=== PATIENT | male | born 1955 | race Caucasian/White ===

== ENCOUNTER 2018-02-12 08:44 | Emergency (ER) | payer OTHER ==
[2018-02-12] MEDS ORDERED: NA CHLORIDE 0.9% 1,000 ML ONE (09:13)
[2018-02-12 09:42] LABS: Absolute Lymphocytes (CBC) 2.5 K/uL (0.7-4.9); Absolute Monocytes 0.9 K/uL (0.1-1.3); Absolute Neutrophil 5.5 K/uL (1.8-8.0); Basophils % 0.6 % (0-1.3); Hematocrit 48.4 % (39.6-49.0); Lymphocytes % 26.8 % (15.3-44.8); MCH 30.5 pg (27.0-35.0); MCV 87.6 fL (80-100); MPV 9.3 fL (7.6-11.3); Monocytes % 9.3 % (3.3-12.3); RBC Red Blood Cell Count 5.52 M/uL (4.33-5.43)
[2018-02-12 09:45] LABS: Albumin 4.3 g/dL (3.4-5.0); Bilirubin Direct 0.2 mg/dL (0-0.2); Bilirubin Total 0.7 mg/dL (0.2-1.0); Potassium 4.2 mmol/L (3.5-5.1)
[2018-02-12 10:10] LABS: Urine Blood NEGATIVE (NEG); Urine Glucose NEGATIVE (NEG); Urine Protein NEGATIVE (NEG)
--- NOTE | 2018-02-12 10:40 | RAD REPORT ---
EXAM DESCRIPTION: CT - Abdomen Pelvis W Contrast - 02/12/2018 10:03 am CLINICAL HISTORY: Abdominal pain COMPARISON: None. TECHNIQUE: Biphasic, helical CT imaging of the abdomen and pelvis was performed following 100 ml non -ionic IV contrast. Oral contrast was given. All CT scans are performed using dose optimization technique as appropriate and may include automated exposure control or mA/KV adjustment according to patient size. FINDINGS: No suspicious findings in the lung bases. The liver, spleen, and pancreas show no suspicious findings. Liver shows fatty infiltration. Cholecys tectomy clips are present with no biliary tree dilatation. Symmetric renal function is seen with no hydronephrosis or suspicious renal mass. No pyelonephritis o r acute renal parenchymal process. Partially filled urinary bladder shows no suspicious finding. [place] gland and seminal vesicles within range of normal. No gastric dilatation or wall thickening. Small bowel loops are not dilated though there are a few mi d small bowel loops mildly prominent. No appendicitis. No acute colon finding seen. Patient has numer ous small central mesenteric lymph nodes. Peripancreatic and periportal lymph nodes are present more prominent in size. Largest is 2.4 x 1.4 cm. These are still generally benign in appearance. No free air, free fluid or inflammatory stranding. No hernia, mass or bulky lymphadenopathy. The uri nary bladder is without significant finding. No adrenal abnormality. No suspicious bony findings. IMPRESSION: No bowel obstruction, acute appendicitis, free air or surgically emergent finding. Minimally prominent small bowel loops and mesenteric lymph nodes are present and could indicate a non specific enteritis. Mild fatty infiltration of the liver.
--- NOTE | 2018-02-12 10:49 | ER ---
Nurse's Notes [facility] Name: Ponce Benítez Age: 62 yrs Sex: Male : 1955 Arrival Date: 02/12/2018 Time: 08:47 Bed 20 Private MD: None, None Diagnosis: Unspecified abdominal pain Presentation: 02/12 08:48 Presenting complaint: Patient states: Right-sided abd pain that began this morning. Pt aa5 denies N/V/D. Transition of care: patient was not received from another setting of care. Onset of symptoms was January 2018. Risk Assessment: Do you want to hurt yourself or someone else? Patient reports no desire to harm self or others. Initial Sepsis Screen: Does the patient meet any 2 criteria? No. Patient's initial sepsis screen is negative. Does the patient have a suspected source of infection? No. Patient's initial sepsis screen is negative. Care prior to arrival: None. 08:48 Method Of Arrival: Ambulatory aa5 08:48 Acuity: LUIS MANUEL 3 aa5 Triage Assessment: 08:53 General: Appears in no apparent distress. uncomfortable, Behavior is calm, cooperative, bp appropriate for age. Pain: Complains of pain in right upper quadrant and right lower quadrant. EENT: No deficits noted. Neuro: Level of Consciousness is awake, alert, obeys commands, Oriented to person, place, time, situation, Appropriate for age. Cardiovascular: No deficits noted. Respiratory: Airway is patent Respiratory effort is even, unlabored, Respiratory pattern is regular, symmetrical. GI: Abdomen is non-distended. : No signs and/or symptoms were reported regarding the genitourinary system. Derm: No deficits noted. Musculoskeletal: Circulation, motion, and sensation intact. Range of motion: intact in all extremities. Historical: - Allergies: 08:49 No Known Allergies; aa5 - Home Meds: 08:49 None [Active]; aa5 - PMHx: 08:49 Hyperlipidemia; aa5 - PSHx: 08:49 Cholecystectomy; aa5 - Immunization history:: Adult Immunizations unknown. - Social history:: Smoking status: Patient/guardian denies using tobacco. - Ebola Screening: : No symptoms or risks identified at this time. Screenin:55 Abuse screen: Denies threats or abuse. Denies injuries from another. Nutritional bp screening: No deficits noted. Tuberculosis screening: No symptoms or risk factors identified. Fall Risk None identified. Assessment: 08:54 General: SEE TRIAGE NOTE. PT NOW STATING PAIN INTERMITTENT FOR YEARS. bp 09:30 GI: Bowel sounds present X 4 quads. Abd is soft X 4 quads. bp 09:54 Reassessment: PT TO CT WITH MEDICAID SPECIALIST. bp 10:13 Reassessment: PT RETURNED TO ROOM FROM CT. bp 11:06 Reassessment: PT D/C HOME AMBULATORY, DX WITH BILIARY COLIC. bp Vital Signs: 08:49 BP 163 / 91; Pulse 67; Resp 18 S; Temp 97.8(O); Pulse Ox 98% on R/A; Weight 122.47 kg aa5 (R); Height 6 ft. 4 in. (193.04 cm) (R); Pain 0/10; 09:45 BP 139 / 78; Pulse 61; Resp 14; Pulse Ox 94% ; bp 10:13 BP 170 / 85; Pulse 71; Resp 14; Pulse Ox 94% ; bp 10:45 BP 162 / 85; Pulse 61; Resp 16; Pulse Ox 95% ; bp 08:49 Body Mass Index 32.87 (122.47 kg, 193.04 cm) aa5 ED Course: 08:47 Patient arrived in ED. mr 08:47 None, None is Private Physician. mr 08:48 Triage completed. aa5 08:48 Arm band placed on. aa5 08:49 Manolo Fraga, POLA is Primary Nurse. bp 08:50 Kourtney Almeida FNP-C is PHCP. snw 08:50 Arvin Mesa MD is Attending Physician. snw 08:55 Patient has correct armband on for positive identification. Bed in low position. Call bp light in reach. Side rails up X2. 09:20 Inserted saline lock: 18 gauge in right antecubital area, using aseptic technique. aa5 Blood collected. 10:04 CT Abd/Pelvis - W/Contrast: IV CONTRAST ONLY In Process Unspecified. EDMS 10:46 Basic Metabolic Panel Sent. jl7 10:46 CBC with Diff Sent. jl7 11:06 No provider procedures requiring assistance completed. IV discontinued, intact, bp bleeding controlled, No redness/swelling at site. Pressure dressing applied. Administered Medications: 09:20 Drug: NS 0.9% 1000 ml Route: IV; Rate: 125 ml/hr; Site: right antecubital; aa5 11:05 Follow up: IV Status: Completed infusion; IV Intake: 350ml bp Intake: 11:05 IV: 350ml; Total: 350ml. bp Outcome: 10:49 Discharge ordered by MD. banegas 11:07 Discharged to home ambulatory. bp 11:07 Condition: stable 11:07 Discharge instructions given to patient, Instructed on discharge instructions, follow up and referral plans. medication usage, Demonstrated understanding of instructions, follow-up care, medications, Prescriptions given X 2. 11:09 Patient left the ED. bp Signatures: Dispatcher [employer] EDMS Kourtney Almeida, MILITARY ADMINISTRATIVE TECHNICIAN-C MILITARY ADMINISTRATIVE TECHNICIAN-Csnw Deborah Prakash, Sara, RN RN aa5 Rosi Patterson, RN RN jl7 Manolo Fraga RN RN bp
--- NOTE | 2018-02-12 10:49 | EDPHYS ---
Physician Documentation [facility] Name: Ponce Benítez Age: 62 yrs Sex: Male : 1955 Arrival Date: 02/12/2018 Time: 08:47 Bed 20 Private MD: None, None ED Physician Arvin Mesa HPI: 02/12 09:05 This 62 yrs old Male presents to ER via Ambulatory with complaints of snw Abdominal Pain. 09:05 The patient presents with abdominal pain in the right upper quadrant. Onset: The snw symptoms/episode began/occurred gradually, and became persistent. The symptoms radiate to the right flank, and suprapubic area. The symptoms are described as crampy. Severity of pain: At its worst the pain was moderate. The patient has been recently seen by a physician: with similar presenting complaints, has seen Surgeon in [place], had cholecystectomy, saw him in follow up - dx with scar tissue, symptoms continue and pt is nervous. + family hx of liver, pacreatic cancer. Historical: - Allergies: 08:49 No Known Allergies; aa5 - Home Meds: 08:49 None [Active]; aa5 - PMHx: 08:49 Hyperlipidemia; aa5 - PSHx: 08:49 Cholecystectomy; aa5 - Immunization history:: Adult Immunizations unknown. - Social history:: Smoking status: Patient/guardian denies using tobacco. - Ebola Screening: : No symptoms or risks identified at this time. ROS: 09:04 Constitutional: Negative for fever, chills, and weight loss, Eyes: Negative for injury, snw pain, redness, and discharge, ENT: Negative for injury, pain, and discharge, Neck: Negative for injury, pain, and swelling, Cardiovascular: Negative for chest pain, palpitations, and edema, Respiratory: Negative for shortness of breath, cough, wheezing, and pleuritic chest pain, Back: Negative for injury and pain, : Negative for injury, bleeding, discharge, and swelling, MS/Extremity: Negative for injury and deformity, Skin: Negative for injury, rash, and discoloration, Neuro: Negative for headache, weakness, numbness, tingling, and seizure. 09:04 Abdomen/GI: Positive for abdominal pain, of the right upper quadrant. Exam: 09:04 Constitutional: This is a well developed, well nourished patient who is awake, alert, snw and in no acute distress. Head/Face: Normocephalic, atraumatic. Eyes: Pupils equal round and reactive to light, extra-ocular motions intact. Lids and lashes normal. Conjunctiva and sclera are non-icteric and not injected. Cornea within normal limits. Periorbital areas with no swelling, redness, or edema. ENT: Nares patent. No nasal discharge, no septal abnormalities noted. Tympanic membranes are normal and external auditory canals are clear. Oropharynx with no redness, swelling, or masses, exudates, or evidence of obstruction, uvula midline. Mucous membranes moist. Neck: Trachea midline, no thyromegaly or masses palpated, and no cervical lymphadenopathy. Supple, full range of motion without nuchal rigidity, or vertebral point tenderness. No Meningismus. Chest/axilla: Normal chest wall appearance and motion. Nontender with no deformity. No lesions are appreciated. Cardiovascular: Regular rate and rhythm with a normal S1 and S2. No gallops, murmurs, or rubs. Normal PMI, no JVD. No pulse deficits. Respiratory: Lungs have equal breath sounds bilaterally, clear to auscultation and percussion. No rales, rhonchi or wheezes noted. No increased work of breathing, no retractions or nasal flaring. Back: No spinal tenderness. No costovertebral tenderness. Full range of motion. Skin: Warm, dry with normal turgor. Normal color with no rashes, no lesions, and no evidence of cellulitis. MS/ Extremity: Pulses equal, no cyanosis. Neurovascular intact. Full, normal range of motion. Neuro: Awake and alert, GCS 15, oriented to person, place, time, and situation. Cranial nerves II-XII grossly intact. Motor strength 5/5 in all extremities. Sensory grossly intact. Cerebellar exam normal. Normal gait. Psych: Awake, alert, with orientation to person, place and time. Behavior, mood, and affect are within normal limits. 09:04 Abdomen/GI: Inspection: abdomen appears normal, Bowel sounds: normal, Palpation: mild abdominal tenderness, in the right upper quadrant. Vital Signs: 08:49 BP 163 / 91; Pulse 67; Resp 18 S; Temp 97.8(O); Pulse Ox 98% on R/A; Weight 122.47 kg aa5 (R); Height 6 ft. 4 in. (193.04 cm) (R); Pain 0/10; 09:45 BP 139 / 78; Pulse 61; Resp 14; Pulse Ox 94% ; bp 10:13 BP 170 / 85; Pulse 71; Resp 14; Pulse Ox 94% ; bp 10:45 BP 162 / 85; Pulse 61; Resp 16; Pulse Ox 95% ; bp 08:49 Body Mass Index 32.87 (122.47 kg, 193.04 cm) aa5 MDM: 08:50 Patient medically screened. snw 10:56 Data reviewed: vital signs, nurses notes. Data interpreted: Pulse oximetry: on room air snw is 94 %. Interpretation: normal. Counseling: I had a detailed discussion with the patient and/or guardian regarding: the historical points, exam findings, and any diagnostic results supporting the discharge/admit diagnosis, the presence of at least one elevated blood pressure reading (>120/80) during this emergency department visit, lab results, radiology results, the need for outpatient follow up, to return to the emergency department if symptoms worsen or persist or if there are any questions or concerns that arise at home. Special discussion: Based on the patient's Hx, exam, and Dx evaluation, there is no indication for emergent surgery or inpatient Tx. It is understood by the patient/guardian that if the Sx's persist or worsen they need to return immediately for re-evaluation. I have referred the patient to see his PCP for further evaluation of high blood pressure. Based on the history and exam findings, there is no indication for further emergent testing or inpatient evaluation. I discussed with the patient/guardian the need to see the primary care provider for further evaluation of the symptoms. 02/12 09:02 Order name: Basic Metabolic Panel bp 02/12 09:02 Order name: CBC with Diff bp 02/12 09:02 Order name: Creatinine for Radiology; Complete Time: 10:04 bp 02/12 09:02 Order name: Hepatic Function; Complete Time: 10:04 bp 02/12 09:02 Order name: Lipase; Complete Time: 10:04 bp 02/12 09:03 Order name: Basic Metabolic Panel; Complete Time: 10:04 EDMS 02/12 09:02 Order name: IV Saline Lock; Complete Time: 09:23 bp 02/12 09:02 Order name: Labs collected and sent; Complete Time: 09:23 bp 02/12 09:02 Order name: CT Abd/Pelvis - W/Contrast: IV CONTRAST ONLY; Complete Time: 10:45 bp 02/12 09:02 Order name: Urine Dipstick-Ancillary (obtain specimen); Complete Time: 09:23 bp 02/12 09:03 Order name: CBC with Automated Diff; Complete Time: 10:04 EDMS 02/12 09:36 Order name: Urine Dipstick--Ancillary (enter results); Complete Time: 10:15 bd Administered Medications: 09:20 Drug: NS 0.9% 1000 ml Route: IV; Rate: 125 ml/hr; Site: right antecubital; aa5 11:05 Follow up: IV Status: Completed infusion; IV Intake: 350ml bp Disposition: 02/12/18 10:49 Discharged to Home. Impression: Unspecified abdominal pain. - Condition is Stable. - Discharge Instructions: Abdominal Pain, Adult, Biliary Colic, Adult, Hypertension. - Prescriptions for Bentyl 20 mg Oral Tablet - take 1 tablet by ORAL route every 6 hours As needed; 20 tablet. Miralax 17 gram/dose Oral - take 1 packet by ORAL route once daily dilute powder in 8 ounces of water or juice; 1 box. - Medication Reconciliation Form, Thank You Letter, Antibiotic Education, Prescription Opioid Use form. - Follow up: Private Physician; When: 2 - 3 days; Reason: Recheck today's complaints, Continuance of care, Re-evaluation by your physician. Follow up: Emergency Department; When: As needed; Reason: Worsening of condition. Addendum: 02/13/2018 14:45 Co-signature as Attending Physician, Arvin Mesa MD. g s Signatures: Dispatcher [employer] EDFL Kourtney Almeida, LICENSED PHYSICAL THERAPIST ASSISTANT-C LICENSED PHYSICAL THERAPIST ASSISTANT-Alexaw Sara Nava, RN RN aa5 Arvin Mesa MD MD gs Peltier, Brian, RN RN bp Corrections: (The following items were deleted from the chart) 02/12 11:09 10:49 02/12/2018 10:49 Discharged to Home. Impression: Unspecified abdominal pain. bp Condition is Stable. Forms are Medication Reconciliation Form, Thank You Letter, Antibiotic Education, Prescription Opioid Use. Follow up: Private Physician; When: 2 - 3 days; Reason: Recheck today's complaints, Continuance of care, Re-evaluation by your physician. Follow up: Emergency Department; When: As needed; Reason: Worsening of condition. snw
== END 2018-02-12 11:09 | disposition home or self-care (01) ==
LOC: ER 08:44
DX: R10.11 Right upper quadrant pain (principal)
CPT/HCPCS: 36415; 74177; 80048; 80076; 81003; 83690; 85025; 96360; 96361; 99284; J7030; Q9967

== ENCOUNTER 2018-04-22 07:44 | Emergency (ER) | payer OTHER ==
--- NOTE | 2018-04-22 08:29 | ER ---
Nurse's Notes [facility] Name: Ponce Benítez Age: 62 yrs Sex: Male : 1955 Arrival Date: 04/22/2018 Time: 07:49 Bed 13 Private MD: None, None Diagnosis: Acute upper respiratory infection, unspecified Presentation: 04/22 07:50 Presenting complaint: Patient states: Started having congestion and a sore throat 2 rb1 days ago. When he coughs, there is blood tinged sputum. Denies fever, NVD. Transition of care: patient was not received from another setting of care. Onset of symptoms was April 20, 2018. Risk Assessment: Do you want to hurt yourself or someone else? Patient reports no desire to harm self or others. Initial Sepsis Screen: Does the patient meet any 2 criteria? No. Patient's initial sepsis screen is negative. Does the patient have a suspected source of infection? No. Patient's initial sepsis screen is negative. Care prior to arrival: None. 07:50 Method Of Arrival: Ambulatory rb1 07:50 Acuity: LUIS MANUEL 3 rb1 Triage Assessment: 07:50 General: Appears in no apparent distress. comfortable, Behavior is calm, cooperative, rb1 Denies fever. Pain: Denies pain. Neuro: Level of Consciousness is awake, alert, obeys commands, Oriented to person, place, time, situation. Cardiovascular: Capillary refill < 3 seconds is brisk in bilateral fingers. Respiratory: Reports shortness of breath pt. stated, "I think I'm SOB because my nose is congested." cough that is productive, occasional blood tinged sputum Airway is patent Respiratory effort is even, unlabored, Respiratory pattern is regular, symmetrical. GI: No signs and/or symptoms were reported involving the gastrointestinal system. : No signs and/or symptoms were reported regarding the genitourinary system. Derm: Skin is pink, warm \\T\\ dry. Musculoskeletal: Range of motion: intact in all extremities. Historical: - Allergies: 07:50 No Known Allergies; rb1 - Home Meds: 07:50 None [Active]; rb1 - PMHx: 07:50 Hyperlipidemia; rb1 - PSHx: 07:50 Cholecystectomy; rb1 - Immunization history:: Flu vaccine is not up to date. - Social history:: Smoking status: Patient/guardian denies using tobacco. - Family history:: not pertinent. - Ebola Screening: : Patient negative for fever greater than or equal to 101.5 degrees Fahrenheit, and additional compatible Ebola Virus Disease symptoms. - Hospitalizations: : No recent hospitalization is reported. Screenin:50 Abuse screen: Denies threats or abuse. Nutritional screening: No deficits noted. rb1 Tuberculosis screening: No symptoms or risk factors identified. Fall Risk None identified. Assessment: 07:50 General: See triage assessment. rb1 08:36 Reassessment: Patient appears in no apparent distress at this time. Patient and/or rb1 family updated on plan of care and expected duration. Pain level reassessed. Patient is alert, oriented x 3, equal unlabored respirations, skin warm/dry/pink. Patient denies pain at this time. Vital Signs: 07:50 BP 141 / 81; Pulse 64; Resp 20; Temp 98.1(O); Pulse Ox 97% on R/A; Weight 124.74 kg rb1 (R); Height 6 ft. 4 in. (193.04 cm) (R); Pain 0/10; 08:36 BP 123 / 79; Pulse 73; Resp 17; Pulse Ox 98% on R/A; Pain 0/10; rb1 07:50 Body Mass Index 33.47 (124.74 kg, 193.04 cm) rb1 ED Course: 07:49 Patient arrived in ED. sb2 07:49 None, None is Private Physician. sb2 07:50 Ann Castano, RN is Primary Nurse. rb1 07:50 Yomi Ramey MD is Attending Physician. rn 07:50 Arm band placed on right wrist. rb1 07:50 Patient has correct armband on for positive identification. Bed in low position. Call rb1 light in reach. Side rails up X 1. Pulse ox on. NIBP on. 08:11 Triage completed. rb1 08:21 Flu Sent. rb1 08:37 No provider procedures requiring assistance completed. Patient did not have IV access rb1 during this emergency room visit. Administered Medications: No medications were administered Outcome: 08:29 Discharge ordered by . rn 08:37 Discharged to home ambulatory. rb1 08:37 Condition: stable 08:37 Discharge instructions given to patient, Instructed on discharge instructions, follow up and referral plans. Demonstrated understanding of instructions, follow-up care, Prescriptions given X none 08:37 Patient left the ED. rb1 Signatures: Yomi Ramey MD MD rn Eyad, Ann RN RN rb1 Debo Padorn2
--- NOTE | 2018-04-22 08:29 | EDPHYS ---
Physician Documentation [facility] Name: Ponce Benítez Age: 62 yrs Sex: Male : 1955 Arrival Date: 04/22/2018 Time: 07:49 Bed 13 Private MD: None, None ED Physician Yomi Ramey HPI: 04/22 08:00 This 62 yrs old Male presents to ER via Unassigned with complaints of Flu rn Symptoms. 08:00 The patient presents with sore throat. The patient describes throat pain as burning, rn scratchy. Onset: The symptoms/episode began/occurred 2 day(s) ago. Severity of symptoms: At their worst the symptoms were mild, in the emergency department the symptoms are unchanged. Modifying factors: The symptoms are alleviated by nothing, the symptoms are aggravated by nothing. The patient has not experienced similar symptoms in the past. The patient has not recently seen a physician. Reports runny nose, congestion, sore throat, no fever, reports several family members recently ill with similar symptoms, is not from here so wanted to get checked before things get worse, non-smoker. Denies sob. . Historical: - Allergies: 07:50 No Known Allergies; rb1 - Home Meds: 07:50 None [Active]; rb1 - PMHx: 07:50 Hyperlipidemia; rb1 - PSHx: 07:50 Cholecystectomy; rb1 - Immunization history:: Flu vaccine is not up to date. - Social history:: Smoking status: Patient/guardian denies using tobacco. - Family history:: not pertinent. - Ebola Screening: : Patient negative for fever greater than or equal to 101.5 degrees Fahrenheit, and additional compatible Ebola Virus Disease symptoms. - Hospitalizations: : No recent hospitalization is reported. ROS: 08:00 Constitutional: Negative for fever, chills, and weight loss, Eyes: Negative for injury, rn pain, redness, and discharge, ENT: + runny nose and congestion, + sore throat Neck: Negative for injury, pain, and swelling, Cardiovascular: Negative for chest pain, palpitations, and edema, Respiratory: + cough, negative for sob Abdomen/GI: Negative for abdominal pain, nausea, vomiting, diarrhea, and constipation, MS/Extremity: Negative for injury and deformity, Skin: Negative for injury, rash, and discoloration, Neuro: Negative for headache, weakness, numbness, tingling, and seizure. Exam: 08:00 Constitutional: This is a well developed, well nourished patient who is awake, alert, rn and in no acute distress. Head/Face: Normocephalic, atraumatic. Eyes: Pupils equal round and reactive to light, extra-ocular motions intact.Conjunctiva and sclera are non-icteric and not injected. Periorbital areas with no swelling, redness, or edema. ENT: Nares patent. No nasal discharge, no septal abnormalities noted.MMM, mild pharyngeal erythema, no stridor, no exudate. Neck: Trachea midline, no thyromegaly or masses palpated, and no cervical lymphadenopathy. No Meningismus. Cardiovascular: Regular rate and rhythm with a normal S1 and S2. No gallops, murmurs, or rubs. No pulse deficits. Respiratory: Lungs have equal breath sounds bilaterally, clear to auscultation. No increased work of breathing, no retractions or nasal flaring. Speaking full sentences Skin: Warm, dry with normal turgor. Normal color with no rashes, no lesions, and no evidence of cellulitis. MS/ Extremity: Pulses equal, no cyanosis. Neurovascular intact. Full, normal range of motion. Equal circumference. Neuro: Awake and alert, GCS 15, oriented to person, place, time, and situation. Motor strength 5/5 in all extremities. Sensory grossly intact. Vital Signs: 07:50 BP 141 / 81; Pulse 64; Resp 20; Temp 98.1(O); Pulse Ox 97% on R/A; Weight 124.74 kg rb1 (R); Height 6 ft. 4 in. (193.04 cm) (R); Pain 0/10; 08:36 BP 123 / 79; Pulse 73; Resp 17; Pulse Ox 98% on R/A; Pain 0/10; rb1 07:50 Body Mass Index 33.47 (124.74 kg, 193.04 cm) rb1 MDM: 07:50 Patient medically screened. rn 08:28 Differential diagnosis: group A strep tonsillitis, influenza, pharyngitis, upper rn respiratory infection, viral syndrome. Data reviewed: vital signs, nurses notes, lab test result(s), and as a result, I will discharge patient. Counseling: I had a detailed discussion with the patient and/or guardian regarding: the historical points, exam findings, and any diagnostic results supporting the discharge/admit diagnosis, lab results, the need for outpatient follow up, to return to the emergency department if symptoms worsen or persist or if there are any questions or concerns that arise at home. Special discussion: I discussed with the patient/guardian in detail that at this point there is no indication for admission to the hospital. It is understood, however, that if the symptoms persist or worsen the patient needs to return immediately for re-evaluation. 04/22 08:00 Order name: Flu; Complete Time: 08: rn 04/22 08:00 Order name: Strep; Complete Time: 08: rn 04/22 08:26 Order name: Throat Culture EDMS Administered Medications: No medications were administered Disposition: 04/22/18 08:29 Discharged to Home. Impression: Acute upper respiratory infection, unspecified. - Condition is Stable. - Discharge Instructions: Viral Respiratory Infection. - Medication Reconciliation Form, Thank You Letter, Antibiotic Education, Prescription Opioid Use form. - Follow up: Private Physician; When: As needed; Reason: Recheck today's complaints, Re-evaluation by your physician. - Problem is new. - Symptoms have improved. Signatures: Dispatcher [employer] EDMS Yomi Ramey MD MD rn Barber, Rebecca, RN RN rb1 Corrections: (The following items were deleted from the chart) 08:37 08:29 04/22/2018 08:29 Discharged to Home. Impression: Acute upper respiratory rb1 infection, unspecified. Condition is Stable. Forms are Medication Reconciliation Form, Thank You Letter, Antibiotic Education, Prescription Opioid Use. Follow up: Private Physician; When: As needed; Reason: Recheck today's complaints, Re-evaluation by your physician. Problem is new. Symptoms have improved. rn
== END 2018-04-22 08:37 | disposition home or self-care (01) ==
LOC: ER 07:44
DX: J06.9 Acute upper respiratory infection, unspecified (principal)
CPT/HCPCS: 87070; 87081; 87804; 99283